=== PATIENT | female | born 1935 | race African-American/Black ===

== ENCOUNTER → 2016-12-06 | Outpatient (CLI) | payer OTHER ==
[~2016-12-06] MED LIST: ARANESP 10100 MCG/0. SUBQ; ARANESP INJECTION; ARTIFICIAL TEAR15 M1 OPHTHALMIC; AZOPT OPHTH1 %/10 M1 OP; CIPRO500 MG PO; COLACE100 MG PO; COUMADIN 4 MG TA4 M1 PO; COUMADIN 5 MG TA5 M1 PO; DIGOXIN125 MCG PO; HEPARIN SO1000 UNIT2 IV PUSH; IRON325 PO; LEVEMIR SUBQ; LEVOTHYROXIN0.075 MG PO; LIPITOR 20 MG T20 M1 PO; MARINOL5 MG PO; MIDODRINE HCL 55 M1 PO; NEO-BACIT-POLY3.5 GM TOP; NOVOLOG100 UNIT/1 SUBQ; OXYCODONE HCL 55 MG PO; PANTOPRAZOLE SO40 M1 PO; SODIUM CHLORID100 M4 IV; VITAMIN D2000 UNIT PO; XALATAN2.5 ML OPHTHALMIC
--- NOTE | ~2016-12-06 | 2DMMODE ---
[facility] [place] [address] 2 D/M-MODE ECHOCARDIOGRAM Name: ALISAKRISSYYURI Room #: REG [facility]#: [id number] Admission: 12/06/16 Attend Phys: Mariama Tristan Discharge: Date of : 37 Date of Service: 12/06/[address] [facility] Report #: [id number] THIS REPORT FOR: //name// APPROVED REPORT Study performed: 12/06/2016 09:16:18 EXAM: Comprehensive 2D, Doppler, and color-flow Echocardiogram Patient Location: Out-Patient/From [facility] Other Information Study Quality: Adequate/Exam done on cart Indications Pericardial effusion. 2D Dimensions RVDd: 53.89 mm LVEF(%): 52.95 (>50%) IVSd: 10.94 (7-11mm) LVOT Diam: 21.78 (18-24mm) LVDd: 47.97 mm PWd: 10.57 (7-11mm) LVDs: 34.90 (25-40mm) Aortic Root: 33.16 mm Dacosta's LVEF: 52.95 % Volumes Left Atrial Volume (Systole) Single Plane 4CH: 88.99 mL Single Plane 2CH: 169.98 mL Aortic Valve AoV Peak Missael.: 1.37 m/s AO Peak Gr.: 7.48 mmHg LVOT Max P.74 mmHg LVOT Max V: 0.83 m/s MARIANO Vmax: 2.25 cm2 Mitral Valve MV Decel. Time: 183.00 ms MV E Max Missael.: 1.13 m/s Pulmonary Valve PV Peak Missael.: 0.84 m/s PV Peak Gr.: 2.82 mmHg Tricuspid Valve TR Peak Missael.: 3.26 m/s RAP Estimate: 15.00 mmHg [facility] [place] [place] [address] 2 D/M-MODE [facility] [id number] Admission: 12/06/16 Attend Phys: Mariama Tristan Discharge: Date of : 37 Date of Service: 12/06/16 1300 Report #: [id number] TR Peak Gr.: 42.77 mmHg PA Pressure: 58.00 mmHg Left Ventricle The left ventricle is normal size. There is normal LV segmental wall motion. There is normal left ventricular wall thickness. Left ventricular systolic function is at lower limits of normal. LVEF is 50%. This study is not technically sufficient to allow evaluation of the LV diastolic function due to atrial fibrillation. Right Ventricle Right ventricle is moderately dilated. Right ventricle is hypokinetic. Atria Left atrium is severely dilated. Right atrium is massively dilated. Aortic Valve Aortic valve is mildly calcified. No aortic regurgitation is present. There is no aortic valvular stenosis. Mitral Valve Mitral valve leaflets are mildly thickened. Moderate mitral regurgitation. Tricuspid Valve There is moderate to severe tricuspid regurgitation. The right atrial pressure is estimated at 15 mmHg. There is moderate pulmonary hypertension with an estimated PAP of 55-60mmHg. Pulmonic Valve The pulmonary valve is normal in structure. Trace to mild pulmonic regurgitation. Great Vessels The aortic root is normal in size. IVC is dilated and collapses <50% with inspiration. Pericardium There is no pericardial effusion. Large left pleural effusion noted. <Conclusion> Left ventricular systolic function is at lower limits of normal. [facility] [place] [address] 2 D/M-MODE ECHOCARDIOGRAM Name: JENNYFelicianoMABLE Room #: REG [facility]#: [id number] Admission: 12/06/16 Attend Phys: Mariama Tristan Discharge: Date of : 37 Date of Service: 12/06/16 1300 Report #: [id number] There is normal LV segmental wall motion. LVEF 50%. Right ventricle is moderately dilated and hypokinetic Left atrium is severely dilated. Right atrium is massively dilated. Aortic valve is mildly calcified. No aortic regurgitation or stenosis. Mitral valve leaflets are mildly thickened. Moderate mitral regurgitation. Pulmonary artery pressure of 55mmHg There is no pericardial effusion. Large left pleural effusion noted. <ELECTRONICALLY SIGNED> By: Colt Michael MD, [facility] 12/06/16 1300 1300 1300 Colt Michael MD, FACC /INF
--- NOTE | ~2016-12-06 | CNG ---
[facility] [place] [address] CYTO-NONGYN REPORT PROCEDURE Name: BIANCA DIAMONDONEASE Room #: SURYA Leslie.Shashank.#: [id number] Admission: 12/06/16 Date of : 37 Discharge: Report #: [id number] Path Case #: [id number] CYTOPATHOLOGY REPORT COLLECTION DATE: 12/06/2016 RECEIVED DATE: 12/06/2016 SUBMITTING PHYS: Dr. Igro Hale OTHER PHYS: CLINICAL HISTORY: Pericardial Effusion SPECIMEN(S) RECEIVED: A.Pleural fluid * * * * * * * * * * * * FINAL DIAGNOSIS: A. Pleural fluid: - No malignant cells identified. Normal and reactive mesothelial cells are present in a background of debris. PATHOLOGIST: Deanna Lazar M.D. REPORT ELECTRONICALLY SIGNED BY: Deanna Lazar M.D. DATE/TIME: 12/07/2016 16:15 * * * * * * * * * * * * GROSS PATHOLOGY: A. Pleural fluid: The specimen is submitted unfixed, labeled "Kerry Diamond". Received by the Cytology Department is 30 mL of cloudy dark red fluid. One ThinPrep slide and a cell block were prepared. (mm 12.06.2016) UTILITY TECH(S): DOMINGA Hunter(ASCP) INITIAL CPT CODE(S): A; 22141, 45446 Professional services performed by [facility] at [facility] [address] [place] [address] Technical services performed by [facility] at [address] [place] [address]., [address], [place] [address]. [facility] [address] [place] [address], [address] [place] [address] PHONE: [phone] [facility] [address] [place] [address] CYTO-NONGYN REPORT PROCEDURE Name: KERRY DIAMOND Room #: REG HERNAN Unger#: [id number] Admission: 12/06/16 Date of : 37 Discharge: Report #: [id number] Path Case #: [id number] DIRECTOR: Waqas Sanches M.D. * * * END OF REPORT * * *
[2016-12-06 11:04] LABS: CLARITY TURBID; COLOR RED; TOTAL VOLUME 60 mL
[2016-12-06 11:24] LABS: BF NUCLEATED CELLS 1023; BF RBC 1280671
[2016-12-06 12:45] LABS: BF MACROPHAGE 19; BF NEUTROPHILS 15; MANUAL DIFF YES
[2016-12-07 12:09] LABS: BODY FLUID ALBUMIN 2.3 g/dL (()); BODY FLUID AMYLASE 147 U/L (()); BODY FLUID GLUCOSE 98 mg/dL (()); BODY FLUID LDH 248 IU/L (()); BODY FLUID PROTEIN 4.3 g/dL (())
== END | disposition home or self-care (01) ==
LOC: CV 12-02 08:57
PROVIDERS: Internal Medicine Pulmonary Disease
DX: J90 Pleural effusion, not elsewhere classified (principal); R06.02 Shortness of breath

== ENCOUNTER 2016-12-12 12:55 | Inpatient (IN) | payer OTHER ==
[~2016-12-12] VITALS: Ht 170.2 cm; Wt 67.1 kg
--- NOTE | ~2016-12-12 | CNG ---
[facility] [place] [address] CYTO-NONGYN REPORT PROCEDURE Name: ALISABIANCAVALENTIN Room #: 514-P ADM IN M.R.#: [id number] Admission: 12/14/16 Date of : 37 Discharge: Report #: [id number] Path Case #: [id number] CYTOPATHOLOGY REPORT COLLECTION DATE: 12/19/2016 RECEIVED DATE: 12/19/2016 SUBMITTING PHYS: Dr. Pérez Trevizo OTHER PHYS: Dr. Dafne Schmidt CLINICAL HISTORY: Septic shock, Resp failure, L posterior and R frontal CVA. SPECIMEN(S) RECEIVED: A.Pleural fluid * * * * * * * * * * * * FINAL DIAGNOSIS: A. Pleural fluid: - No malignant cells identified. Scattered reactive mesothelial cells and inflammatory cell. PATHOLOGIST: Delia De Jesus M.D. REPORT ELECTRONICALLY SIGNED BY: Delia De Jesus M.D. DATE/TIME: 12/20/2016 13:30 * * * * * * * * * * * * GROSS PATHOLOGY: A. Pleural fluid: The specimen is submitted unfixed, labeled "Kerry Diamond". Received by the Cytology Department is 10 mL of red fluid. One ThinPrep slide and a cell block were prepared. (clt 12.19.2016) ONLINE MARKETING COORDINATOR(S): DOMINGA Chin([facility]) INITIAL CPT CODE(S): A; 76031, 87116 Professional services performed by [facility] at [facility] [address], [place] [address] Technical services performed by [facility] at [address] [place] [address]., [address], [place] [address]. [facility] [address] [place] [address], [address] [place] [address] PHONE: [phone] [facility] [address] [place] [address] CYTO-NONGYN REPORT PROCEDURE Name: KERRY DIAMOND Room #: 514-P ADM IN M.R.#: [id number] Admission: 12/14/16 Date of : 37 Discharge: Report #: [id number] Path Case #: [id number] DIRECTOR: Waqas Sanches M.D. * * * END OF REPORT * * *
--- NOTE | ~2016-12-12 | CNG ---
[facility] [place] [address] CYTO-NONGYN REPORT PROCEDURE Name: JENNYBIANCA WigginsVALENTIN Room #: 514-P ADM IN M.R.#: [id number] Admission: 12/14/16 Date of : 37 Discharge: Report #: [id number] Path Case #: [id number] CYTOPATHOLOGY REPORT COLLECTION DATE: 12/23/2016 RECEIVED DATE: 12/26/2016 SUBMITTING PHYS: Dr. Pérez Trevizo OTHER PHYS: Dr. Dafne Schmidt CLINICAL HISTORY: Septic shock, resp failure; L posterior and R frontal CVA SPECIMEN(S) RECEIVED: A.Pleural fluid, Left * * * * * * * * * * * * FINAL DIAGNOSIS: A. Left Pleural fluid, Left: - No malignant epithelial cells identified. Reactive mesothelial cells along with macrophages as well as numerous acute and chronic inflammatory cells. PATHOLOGIST: Deanna Lazar M.D. REPORT ELECTRONICALLY SIGNED BY: Deanna Lazar M.D. DATE/TIME: 12/27/2016 15:30 * * * * * * * * * * * * GROSS PATHOLOGY: A. Pleural fluid, Left: The specimen is submitted unfixed, labeled "Kerry Diamond". Received by the Cytology Department is 15 mL of cloudy red fluid. One ThinPrep slide and a cell block were prepared. (mm 12.26.2016) YOUTH PASTOR(S): DOMINGA Hunter([facility]) INITIAL CPT CODE(S): A; 10660, 63946 Professional services performed by [facility] at [facility] [address], [place] [address] Technical services performed by [facility] at [address] [place] [address]., [address], [place] [address]. [facility] [address] [place] [address], [facility] [address] [place] [address] [facility] [address] [place] [address] CYTO-NONGYN REPORT PROCEDURE Name: KERRY DIAMOND Room #: 514-P ADM IN M.R.#: [id number] Admission: 12/14/16 Date of : 37 Discharge: Report #: [id number] Path Case #: [id number] PHONE: [phone] DIRECTOR: Waqas Sanches M.D. * * * END OF REPORT * * *
--- NOTE | ~2016-12-12 | HC ---
[facility] [place] [address] CONSULTATION Name: MABLE CUELLAR Room #: 514-[facility] IN M.R.#: [id number] Admission: 12/14/16 Attend Phys: Pérez Trevizo MD Discharge: 01/06/17 Date of : 37 Report #: [id number] THIS REPORT FOR: //name// CC: Pérez Trevizo Dafne Schmidt DATE OF SERVICE: 01/02/2017 TYPE OF REPORT: Neurobehavioral status exam. ATTENDING PHYSICIAN: Pérez Trevizo M.D. THERMODYNAMICS PROFESSOR: Ector Holcomb, PhD. CLINICAL PRESENTATION: The patient is a 71-year-old female admitted to the [facility] Unit for a comprehensive inpatient rehabilitation program to improve functional mobility and activities of daily living and self-care secondary to left posterior cerebral artery infarction. Her medical problems include AFib, AVIS, cardiomyopathy, diabetes and hypertension. A complete description of her medical condition and history can be found in her medical record. Neuropsychological consultation was requested to provide assistance in the assessment of cognitive and emotional status and to provide recommendations and services. Prior to this most recent medical event, the patient was living independently in her own home. She had worked at a [employer] prior to her fpc. She has one child. She has 10th grade education. The patient is . TECHNIQUES UTILIZED: Clinical interview, review of medical records, staff consultation and behavioral observation, mini mental status exam 2 brief version. EXAMINATION FINDINGS: The patient was alert and cooperative with the assessment. She accurately described events surrounding her admission. There is no evidence of aphasia. Her thoughts were logical and goal oriented. There is no evidence of thought disorder. She does not report auditory or visual hallucinations. Her performance on the MMSE 2 brief version was impaired. She was 3/3 for initial registration. The patient was oriented to year and place. However, she was 0/3 for immediate recall of 3 items after a brief time delay and distraction. 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 [facility] [address] [place] [address] [facility]: [facility] Room #: 514-[facility] IN .R.#: [id number] Admission: 12/14/16 Attend Phys: Pérez Trevizo MD Discharge: 01/06/17 Date of : 37 Report #: [id number] RECOMMENDATIONS: Continued neuropsychological services as needed. Followup assessment may be of benefit to clarify the severity of cognitive disorder and assist in determination of appropriate supervision and structure. Thank you very much for allowing me to provide the consultation on this patient. <ELECTRONICALLY SIGNED> By: Ector Holcomb, PhD 01/08/17 [phone] Ector Holcomb, PhD /nt
[2016-12-14] MEDS ORDERED: LIPITOR 20 MG T20 M1 PO (16:35)
[2016-12-14] MEDS ORDERED: AZOPT OPHTH1 %/10 M1 OP (16:37)
[2016-12-14] MEDS ORDERED: VITAMIN D2000 UNIT PO (16:38)
[2016-12-14] MEDS ORDERED: CIPRO500 MG PO (16:39)
[2016-12-14] MEDS ORDERED: ARANESP 10100 MCG/0. SUBQ (16:42)
[2016-12-14] MEDS ORDERED: ARANESP INJECTION (16:43)
[2016-12-14] MEDS ORDERED: DIGOXIN125 MCG PO (16:44)
[2016-12-14] MEDS ORDERED: COLACE100 MG PO (16:45)
[2016-12-14] MEDS ORDERED: MARINOL5 MG PO (16:46)
[2016-12-14] MEDS ORDERED: IRON325 PO (16:47)
[2016-12-14] MEDS ORDERED: HEPARIN SO1000 UNIT2 IV PUSH (16:52)
[2016-12-14] MEDS ORDERED: NOVOLOG100 UNIT/1 SUBQ (16:56)
[2016-12-14] MEDS ORDERED: LEVEMIR SUBQ (16:58)
[2016-12-14] MEDS ORDERED: XALATAN2.5 ML OPHTHALMIC (17:05)
[2016-12-14] MEDS ORDERED: LEVOTHYROXIN0.075 MG PO (17:06)
[2016-12-14] MEDS ORDERED: MIDODRINE HCL 55 M1 PO (17:09)
[2016-12-14] MEDS ORDERED: NEO-BACIT-POLY3.5 GM TOP (17:12)
[2016-12-14] MEDS ORDERED: OXYCODONE HCL 55 MG PO (17:13)
[2016-12-14] MEDS ORDERED: PANTOPRAZOLE SO40 M1 PO (17:14)
[2016-12-14] MEDS ORDERED: ARTIFICIAL TEAR15 M1 OPHTHALMIC (17:16)
[2016-12-14] MEDS ORDERED: SODIUM CHLORID100 M4 IV (17:24)
[2016-12-14] MEDS ORDERED: COUMADIN 4 MG TA4 M1 PO (17:25)
[2016-12-14] MEDS ORDERED: COUMADIN 5 MG TA5 M1 PO (17:26)
[2016-12-15 03:55] VITALS: BP 126/66
[2016-12-15 04:00] LABS: HEMATOCRIT 24.6 % (37.0-47.0); HEMOGLOBIN 7.8 gm/dL (12.0-15.0); MCHC 31.9 g/dL (28.0-37.0); MCV 93.8 fL (80.0-100.0); RBC 2.62 mil/uL (4.20-5.00); RDW 16.7 % (10.5-14.5); WBC 9.4 thou/uL (4.0-11.0)
[2016-12-15 04:14] LABS: CALCIUM 8.8 mg/dL (8.5-10.1); CREATININE 2.4 mg/dL (0.6-1.0); POTASSIUM 4.3 mmol/L (3.5-5.1)
[2016-12-15 08:00] VITALS: BP 128/85
[2016-12-15 11:55] LABS: INR 1.7; PROTIME 18.1 Seconds (9.3-11.4)
[2016-12-16 04:03] VITALS: BP 126/64
[2016-12-16 06:54] LABS: ALBUMIN 2.3 g/dL (3.4-5.0); PHOSPHORUS 3.8 mg/dL (2.5-4.9); POTASSIUM 4.4 mmol/L (3.5-5.1)
[2016-12-16 06:56] LABS: INR 1.9
[2016-12-16 07:02] LABS: CREATININE 3.4 mg/dL (0.6-1.0)
[2016-12-16 08:30] VITALS: BP 114/70
[2016-12-16 18:00] VITALS: BP 135/68
[2016-12-16 22:08] LABS: HEP B SURFACE Ab(ANTI-HBS Non Reactive (())
[2016-12-17 05:20] VITALS: BP 123/76
[2016-12-17 06:02] LABS: INR 1.8; PROTIME 18.9 Seconds (9.3-11.4)
[2016-12-17 06:03] LABS: ALBUMIN 2.3 g/dL (3.4-5.0); CALCIUM 8.5 mg/dL (8.5-10.1); PHOSPHORUS 2.4 mg/dL (2.5-4.9)
[2016-12-17 06:07] LABS: CREATININE 2.1 mg/dL (0.6-1.0)
[2016-12-17 08:50] VITALS: BP 101/65
[2016-12-17 12:37] VITALS: BP 104/56
[2016-12-17 16:08] VITALS: BP 128/65
[2016-12-18 05:45] LABS: INR 1.5; PROTIME 15.9 Seconds (9.3-11.4)
[2016-12-18 05:49] VITALS: BP 135/70
[2016-12-18 06:04] LABS: ALBUMIN 2.4 g/dL (3.4-5.0); CALCIUM 8.8 mg/dL (8.5-10.1); PHOSPHORUS 2.8 mg/dL (2.5-4.9); POTASSIUM 3.9 mmol/L (3.5-5.1)
[2016-12-18 06:09] LABS: CREATININE 3.1 mg/dL (0.6-1.0)
[2016-12-18 09:00] VITALS: BP 116/61
[2016-12-18 15:32] VITALS: BP 140/76
[2016-12-19 04:13] VITALS: BP 140/75
[2016-12-19 06:18] LABS: CALCIUM 8.7 mg/dL (8.5-10.1); CREATININE 3.7 mg/dL (0.6-1.0); POTASSIUM 4.2 mmol/L (3.5-5.1)
[2016-12-19 08:00] VITALS: BP 117/64
[2016-12-19 12:22] LABS: MANUAL DIFF YES
[2016-12-19 12:23] LABS: CLARITY CLOUDY; COLOR RED; TOTAL VOLUME 55 mL
[2016-12-19 12:32] LABS: BF NUCLEATED CELLS 1275; BF RBC 227477
[2016-12-19 12:49] LABS: BF NEUTROPHILS 7
[2016-12-19 17:29] VITALS: BP 145/69
[2016-12-20 04:45] VITALS: BP 120/71
[2016-12-20 08:00] VITALS: BP 113/66
[2016-12-20 16:08] LABS: BODY FLUID ALBUMIN 2.1 g/dL (()); BODY FLUID AMYLASE 126 U/L (()); BODY FLUID GLUCOSE 92 mg/dL (()); BODY FLUID LDH 228 IU/L (())
[2016-12-20 17:05] VITALS: BP 130/74
[2016-12-21 04:04] VITALS: BP 117/65
[2016-12-21 08:40] LABS: INR 1.1; PROTIME 11.4 Seconds (9.3-11.4)
[2016-12-21 16:00] VITALS: BP 119/61
[2016-12-22 03:32] LABS: ABSOLUTE NEUTROPHILS 5.5 thou/uL (1.4-8.2); BASOPHILS 0.4 % (0.0-2.0); EOSINOPHILS 0.8 % (0.0-3.0); HEMATOCRIT 24.1 % (37.0-47.0); HEMOGLOBIN 7.9 gm/dL (12.0-15.0); MCHC 32.9 g/dL (28.0-37.0); MCV 91.3 fL (80.0-100.0); MONOCYTES 9.4 % (1.0-8.0); PLATELET COUNT 276 thou/uL (150-400); POLYS 70.4 % (36.0-66.0); RBC 2.64 mil/uL (4.20-5.00); RDW 16.1 % (10.5-14.5); WBC 7.9 thou/uL (4.0-11.0)
[2016-12-22 03:35] LABS: MANUAL DIFF NO
[2016-12-22 03:50] LABS: ALBUMIN 2.3 g/dL (3.4-5.0); CALCIUM 8.7 mg/dL (8.5-10.1); CREATININE 2.9 mg/dL (0.6-1.0); PHOSPHORUS 4.2 mg/dL (2.5-4.9); POTASSIUM 3.8 mmol/L (3.5-5.1)
[2016-12-22 03:55] LABS: INR 1.1
[2016-12-22 04:38] VITALS: BP 124/68
[2016-12-22 09:30] VITALS: BP 111/67
[2016-12-22 16:00] VITALS: BP 132/56
[2016-12-23 04:06] LABS: INR 1.1; PROTIME 11.1 Seconds (9.3-11.4)
[2016-12-23 04:08] LABS: ALBUMIN 2.4 g/dL (3.4-5.0); CALCIUM 8.6 mg/dL (8.5-10.1); CREATININE 3.3 mg/dL (0.6-1.0); PHOSPHORUS 4.5 mg/dL (2.5-4.9); POTASSIUM 3.8 mmol/L (3.5-5.1)
[2016-12-23 05:16] VITALS: BP 136/67
[2016-12-23 15:21] LABS: CLARITY CLOUDY; COLOR RED; TOTAL VOLUME 60 mL
[2016-12-23 15:29] LABS: BF NUCLEATED CELLS 978; BF RBC 46422
[2016-12-23 16:00] VITALS: BP 116/52
[2016-12-23 17:01] LABS: MANUAL DIFF YES
[2016-12-24 04:27] VITALS: BP 123/66
[2016-12-24 04:46] LABS: PROTIME 10.7 Seconds (9.3-11.4)
[2016-12-24 05:01] LABS: ALBUMIN 2.2 g/dL (3.4-5.0); CALCIUM 8.7 mg/dL (8.5-10.1); CREATININE 3.7 mg/dL (0.6-1.0); PHOSPHORUS 4.5 mg/dL (2.5-4.9); POTASSIUM 3.8 mmol/L (3.5-5.1)
[2016-12-24 16:00] VITALS: BP 123/63
[2016-12-25 05:50] VITALS: BP 112/54
[2016-12-25 06:05] LABS: ALBUMIN 2.3 g/dL (3.4-5.0); CALCIUM 9.2 mg/dL (8.5-10.1); CREATININE 3.8 mg/dL (0.6-1.0); PHOSPHORUS 4.7 mg/dL (2.5-4.9); POTASSIUM 3.7 mmol/L (3.5-5.1)
[2016-12-25 16:00] VITALS: BP 134/60
[2016-12-25 16:06] LABS: BODY FLUID ALBUMIN 2.3 g/dL (()); BODY FLUID AMYLASE 130 U/L (()); BODY FLUID GLUCOSE 135 mg/dL (()); BODY FLUID LDH 149 IU/L (())
[2016-12-25 20:00] VITALS: BP 136/62
[2016-12-26 04:10] LABS: ALBUMIN 2.4 g/dL (3.4-5.0); CALCIUM 8.9 mg/dL (8.5-10.1); CREATININE 3.8 mg/dL (0.6-1.0); PHOSPHORUS 4.7 mg/dL (2.5-4.9); POTASSIUM 3.9 mmol/L (3.5-5.1)
[2016-12-26 05:42] VITALS: BP 137/64
[2016-12-26 16:00] VITALS: BP 131/59
[2016-12-27 04:00] VITALS: BP 141/70
[2016-12-27 05:55] LABS: PROTIME 10.5 Seconds (9.3-11.4)
[2016-12-27 06:05] LABS: ALBUMIN 2.3 g/dL (3.4-5.0); CREATININE 3.7 mg/dL (0.6-1.0); PHOSPHORUS 4.5 mg/dL (2.5-4.9); POTASSIUM 3.7 mmol/L (3.5-5.1)
[2016-12-27 16:00] VITALS: BP 136/61
[2016-12-28 05:07] LABS: PROTIME 10.7 Seconds (9.3-11.4)
[2016-12-28 05:14] LABS: ALBUMIN 2.4 g/dL (3.4-5.0); CREATININE 3.7 mg/dL (0.6-1.0); PHOSPHORUS 4.5 mg/dL (2.5-4.9); POTASSIUM 3.7 mmol/L (3.5-5.1)
[2016-12-28 05:44] VITALS: BP 133/69
[2016-12-28 16:00] VITALS: BP 145/55
[2016-12-28 19:29] VITALS: BP 126/80
[2016-12-29 00:33] VITALS: BP 130/80
[2016-12-29 04:06] LABS: PROTIME 10.6 Seconds (9.3-11.4)
[2016-12-29 04:23] VITALS: BP 132/58
[2016-12-29] MEDS ORDERED: COUMADIN 5 MG TA5 M1 PO (15:06)
[2016-12-29] MEDS ORDERED: LEVEMIR SUBQ (15:06)
[2016-12-30 06:39] LABS: INR 1.1; PROTIME 11.4 Seconds (9.3-11.4)
[2016-12-30 06:43] VITALS: BP 153/70
[2016-12-30 06:46] LABS: ALBUMIN 2.4 g/dL (3.4-5.0); CALCIUM 8.9 mg/dL (8.5-10.1); CREATININE 3.4 mg/dL (0.6-1.0); PHOSPHORUS 4.8 mg/dL (2.5-4.9); POTASSIUM 3.6 mmol/L (3.5-5.1)
[2016-12-30 11:09] LABS: HEMATOCRIT 27.1 % (37.0-47.0); HEMOGLOBIN 8.8 gm/dL (12.0-15.0); MCH 30.1 pg (26.0-34.0); MCHC 32.3 g/dL (28.0-37.0); MCV 93.3 fL (80.0-100.0); RBC 2.91 mil/uL (4.20-5.00); WBC 7.5 thou/uL (4.0-11.0)
[2016-12-30 15:19] VITALS: BP 149/55
[2016-12-31 05:06] LABS: INR 1.2; PROTIME 12.4 Seconds (9.3-11.4)
[2016-12-31 05:16] LABS: ALBUMIN 2.5 g/dL (3.4-5.0); CALCIUM 8.8 mg/dL (8.5-10.1); CREATININE 3.4 mg/dL (0.6-1.0); PHOSPHORUS 4.3 mg/dL (2.5-4.9); POTASSIUM 3.5 mmol/L (3.5-5.1)
[2016-12-31 06:14] VITALS: BP 148/54
[2016-12-31 16:35] VITALS: BP 142/54
[2017-01-01 04:44] VITALS: BP 144/56
[2017-01-01 06:15] LABS: INR 1.5; PROTIME 14.9 Seconds (9.3-11.4)
[2017-01-01 16:00] VITALS: BP 142/54
[2017-01-02 04:12] LABS: ABSOLUTE NEUTROPHILS 5.3 thou/uL (1.4-8.2); BASOPHILS 0.5 % (0.0-2.0); EOSINOPHILS 0.6 % (0.0-3.0); LYMPHOCYTES 23.2 % (24.0-44.0); MCH 30.4 pg (26.0-34.0); MCHC 33.4 g/dL (28.0-37.0); MONOCYTES 5.9 % (1.0-8.0); PLATELET COUNT 290 thou/uL (150-400); POLYS 69.8 % (36.0-66.0); RBC 2.96 mil/uL (4.20-5.00); RDW 17.7 % (10.5-14.5); WBC 7.6 thou/uL (4.0-11.0)
[2017-01-02 04:20] LABS: INR 1.7; MANUAL DIFF NO; PROTIME 17.4 Seconds (9.3-11.4)
[2017-01-02 04:26] LABS: ALBUMIN 2.7 g/dL (3.4-5.0); CALCIUM 9.3 mg/dL (8.5-10.1); CREATININE 3.3 mg/dL (0.6-1.0); PHOSPHORUS 3.9 mg/dL (2.5-4.9); POTASSIUM 3.3 mmol/L (3.5-5.1)
[2017-01-02 04:54] VITALS: BP 144/71
[2017-01-02 09:26] VITALS: BP 144/71
[2017-01-02 11:15] LABS: BF MACROPHAGE 15; BF NEUTROPHILS 6
[2017-01-02 16:00] VITALS: BP 140/53
[2017-01-03 04:03] VITALS: BP 143/71
[2017-01-03] MEDS ORDERED: COUMADIN 5 MG TA5 M1 PO (11:35)
[2017-01-03 11:53] LABS: INR 2.3; PROTIME 22.9 Seconds (9.3-11.4)
[2017-01-03 15:45] VITALS: BP 143/75
[2017-01-04 05:28] VITALS: BP 147/62
[2017-01-04 06:39] LABS: ALBUMIN 2.7 g/dL (3.4-5.0); CALCIUM 8.9 mg/dL (8.5-10.1); CREATININE 3.2 mg/dL (0.6-1.0); PHOSPHORUS 3.6 mg/dL (2.5-4.9); POTASSIUM 3.4 mmol/L (3.5-5.1)
[2017-01-04 06:41] LABS: INR 2.6; PROTIME 26.6 Seconds (9.3-11.4)
[2017-01-04 14:49] VITALS: BP 153/74
[2017-01-04 16:49] VITALS: BP 153/74
[2017-01-05 03:11] LABS: INR 2.9; PROTIME 29.1 Seconds (9.3-11.4)
[2017-01-05 03:55] VITALS: BP 155/59
[2017-01-05 16:00] VITALS: BP 152/73
[2017-01-06] VITALS (7 sets, daily range): BP systolic 152–153; BP diastolic 62–74
[2017-01-06 09:08] LABS: ALBUMIN 3.2 g/dL (3.4-5.0); CALCIUM 9.4 mg/dL (8.5-10.1); CREATININE 2.9 mg/dL (0.6-1.0); PHOSPHORUS 3.1 mg/dL (2.5-4.9); POTASSIUM 3.7 mmol/L (3.5-5.1)
[2017-01-06 13:53] LABS: INR 2.9; PROTIME 29.1 Seconds (9.3-11.4)
[2017-01-06] MEDS ORDERED: COUMADIN7.5 MG PO (14:05)
[2017-01-06] MEDS ORDERED: AMARYL2 MG PO (17:13)
== END 2017-01-06 18:00 | disposition home health service (06) | DRG 64 ==
PROVIDERS: Hospitalist; Internal Medicine; Internal Medicine Nephrology; Nurse Practitioner Adult Health; Physical Medicine & Rehabilitation
PROC: 0W9B3ZZ Drainage of Left Pleural Cavity, Percutaneous Approach (ICD-10-PCS; 2016-12-19)
PROC: 0W9B3ZZ Drainage of Left Pleural Cavity, Percutaneous Approach (ICD-10-PCS; 2016-12-23)
PROC: 05PYX3Z Removal of Infusion Device from Upper Vein, External Approach (ICD-10-PCS; principal; 2017-01-02)
DX: I63.9 Cerebral infarction, unspecified (principal); J96.01 Acute respiratory failure with hypoxia; N17.9 Acute kidney failure, unspecified; I42.9 Cardiomyopathy, unspecified; J90 Pleural effusion, not elsewhere classified; G81.91 Hemiplegia, unspecified affecting right dominant side; I48.91 Unspecified atrial fibrillation; N93.9 Abnormal uterine and vaginal bleeding, unspecified; R53.81 Other malaise; R47.01 Aphasia; D64.9 Anemia, unspecified; N18.9 Chronic kidney disease, unspecified; E11.22 Type 2 diabetes mellitus with diabetic chronic kidney disease; I12.9 Hypertensive chronic kidney disease with stage 1 through stage 4 chronic kidney disease, or unspecified chronic kidney disease; Z90.49 Acquired absence of other specified parts of digestive tract; Z93.3 Colostomy status
CPT/HCPCS: 10112; 32100